=== PATIENT | male | born 1990 | race African-American/Black ===

== ENCOUNTER 2025-04-28 18:10 | Emergency (ER) | payer OTHER, SELFPAY ==
--- NOTE | 2025-04-28 18:49 | ER ---
Nurse's Notes [facility] Name: Akhil Irwin Age: 35 yrs Sex: Male : 1990 Arrival Date: 04/28/2025 Time: 18:10 Bed 23 Private MD: Diagnosis: Cutaneous abscess of neck;Type 2 diabetes mellitus with hyperglycemia Presentation: 04/28 18:20 Chief complaint: Patient states: Abscess to back of neck for 1 week getting nh2 progressively worse. No drainage or fever. Coronavirus screen: Client denies travel out of the [place] in the last 14 days. At this time, the client does not indicate any symptoms associated with coronavirus-19. Ebola Screen: Patient denies travel to an Ebola-affected area in the 21 days before illness onset. Acute neurological deficit: none identified. Initial Sepsis Screen: Does the patient meet any 2 criteria? No. Patient's initial sepsis screen is negative. Does the patient have a suspected source of infection? No. Patient's initial sepsis screen is negative. Risk Assessment: Do you want to hurt yourself or someone else? Patient reports no desire to harm self or others. Onset of symptoms was April 21, 2025. 18:20 Method Of Arrival: Ambulatory nh2 18:20 Acuity: PAVAN 3 ll1 Triage Assessment: 18:20 General: Appears uncomfortable, Behavior is calm, cooperative, appropriate for age. ll1 Pain: Complains of pain in posterior neck Pain currently is 2 out of 10 on a pain scale. Quality of pain is described as aching. Derm: Abscess located on posterior neck is half dollar sized, has no drainage, is hot to touch, is raised. Historical: - Allergies: 18:20 No Known Allergies; nh2 - PMHx: 18:20 Diabetes mellitus; nh2 - PSHx: 18:20 None; nh2 - Immunization history:: Adult Immunizations up to date. - Social history:: Smoking status: Patient denies any tobacco usage or history of. - Family history:: not pertinent. Screenin:58 [facility] ED Fall Risk Assessment (Adult) History of falling in the last 3 months, jb4 including since admission No falls in past 3 months (0 pts) Confusion or Disorientation No (0 pts) Intoxicated or Sedated No (0 pts) Impaired Gait No (0 pts) Mobility Assist Device Used No (0 pt) Altered Elimination No (0 pt) Score/Fall Risk Level 0 - 2 = Low Risk Oriented to surroundings, Maintained a safe environment. Abuse screen: Denies threats or abuse. Nutritional screening: No deficits noted. Tuberculosis screening: No symptoms or risk factors identified. Assessment: 18:58 General: Appears in no apparent distress. comfortable, Behavior is calm, cooperative, jb4 appropriate for age. Pain: Denies pain. Neuro: Level of Consciousness is awake, alert, obeys commands, Oriented to person, place, time, situation. Cardiovascular: Patient's skin is warm and dry. Respiratory: Airway is patent Respiratory effort is even, unlabored, Respiratory pattern is regular, symmetrical. Derm: Skin is intact, Skin is dry, Skin is normal, Skin temperature is warm. Musculoskeletal: Circulation, motion, and sensation intact. Range of motion: intact in all extremities, Swelling present in left posterior aspect of neck. 18:59 Reassessment: Provider notified pt BGL 410, no new orders, provider reports pt is to be jb4 discharged and follow up back here tomorrow at 6am. Vital Signs: 18:20 BP 152 / 86; Pulse 112; Resp 17; Temp 97.6; Pulse Ox 100% ; Weight 113.4 kg; Height 6 nh2 ft. 3 in. ; Pain 2/10; 18:20 Body Mass Index 31.25 (113.40 kg, 190.5 cm) nh2 18:20 Pain Scale: Adult nh2 ED Course: 18:15 Patient arrived in ED. im 18:20 Arm band placed on. nh2 18:21 Triage completed. nh2 18:22 Russel Tucker MD is Attending Physician. hannah 18:48 Kevin eKssler MD is Referral Physician. hannah 18:58 Patient has correct armband on for positive identification. Bed in low position. Call jb4 light in reach. Side rails up X 1. Provided Education on: plan of care. 18:58 No provider procedures requiring assistance completed. Patient did not have IV access jb4 during this emergency room visit. Administered Medications: 18:58 Drug: Trimethoprim-Sulfamethoxazole PO (160 mg-800 mg (DS) 2 tablet PO once Route: PO; jb4 19:07 Follow up: Response: Medication administered at discharge. [facility] 18:58 Drug: Clindamycin PO 300 mg PO once Route: PO; jb4 19:07 Follow up: Response: Medication administered at discharge. jb4 18:58 Drug: Ibuprofen PO 600 mg PO once Route: PO; jb4 19:07 Follow up: Response: Medication administered at discharge. jb4 Medication: 18:58 VIS not applicable for this client. jb4 Outcome: 18:49 Discharge ordered by . hannah 19:07 Discharged to home ambulatory, jb4 19:07 Condition: stable 19:07 Discharge instructions given to patient, Instructed on discharge instructions, follow up and referral plans. medication usage, Demonstrated understanding of instructions, follow-up care, medications, Prescriptions given X 4, 19:07 Patient left the ED. jb4 Signatures: Russel Tucker MD MD cha Bryson, James RN RN jb4 Claritza Breen RN RN ll1 Rosalinda Parson Jr, Noel, RN RN nh2 Corrections: (The following items were deleted from the chart) 18:41 18:20 Acuity: PAVAN 4 nh2 ll1
--- NOTE | 2025-04-28 18:49 | EDPHYS ---
Physician Documentation [facility] Name: Akhil Irwin Age: 35 yrs Sex: Male : 1990 Arrival Date: 04/28/2025 Time: 18:10 Bed 23 Private MD: ED Physician Russel uTcker HPI: 04/28 18:40 This 35 yrs old Black Male presents to ER via Ambulatory with complaints of Neck hannah Swelling. 18:40 The patient or guardian complains of pain, that is acute. The symptoms are located on hannah the base of the skull. Onset: The symptoms/episode began/occurred 3 day(s) ago. Associated signs and symptoms: The patient has no apparent associated signs or symptoms. Modifying factors: The symptoms are alleviated by nothing. the symptoms are aggravated by nothing. Severity of symptoms: At their worst the symptoms were moderate, in the emergency department the symptoms are unchanged. The patient has not experienced similar symptoms in the past. Historical: - Allergies: 18:20 No Known Allergies; nh2 - PMHx: 18:20 Diabetes mellitus; nh2 - PSHx: 18:20 None; nh2 - Immunization history:: Adult Immunizations up to date. - Social history:: Smoking status: Patient denies any tobacco usage or history of. - Family history:: not pertinent. ROS: 18:40 Constitutional: Negative for fever, chills, and weight loss, Eyes: Negative for injury, hannah pain, redness, and discharge, ENT: Negative for injury, pain, and discharge, Neck: Negative for injury, pain, and swelling, Cardiovascular: Negative for chest pain, palpitations, and edema, Respiratory: Negative for shortness of breath, cough, wheezing, and pleuritic chest pain, Abdomen/GI: Negative for abdominal pain, nausea, vomiting, diarrhea, and constipation, Back: Negative for injury and pain, : Negative for injury, bleeding, discharge, and swelling, MS/Extremity: Negative for injury and deformity, Neuro: Negative for headache, weakness, numbness, tingling, and seizure, 18:40 Skin: Positive for erythema, swelling, Exam: 18:40 Constitutional: This is a well developed, well nourished patient who is awake, alert, hannah and in no acute distress. Head/Face: Normocephalic, atraumatic. Eyes: Pupils equal round and reactive to light, extra-ocular motions intact. Lids and lashes normal. Conjunctiva and sclera are non-icteric and not injected. Cornea within normal limits. Periorbital areas with no swelling, redness, or edema. ENT: Nares patent. No nasal discharge, no septal abnormalities noted. Tympanic membranes are normal and external auditory canals are clear. Oropharynx with no redness, swelling, or masses, exudates, or evidence of obstruction, uvula midline. Mucous membranes moist. Neck: Trachea midline, no thyromegaly or masses palpated, and no cervical lymphadenopathy. Supple, full range of motion without nuchal rigidity, or vertebral point tenderness. No Meningismus. Chest/axilla: Normal chest wall appearance and motion. Nontender with no deformity. No lesions are appreciated. Cardiovascular: Regular rate and rhythm with a normal S1 and S2. No gallops, murmurs, or rubs. Normal PMI, no JVD. No pulse deficits. Respiratory: Lungs have equal breath sounds bilaterally, clear to auscultation and percussion. No rales, rhonchi or wheezes noted. No increased work of breathing, no retractions or nasal flaring. Abdomen/GI: Soft, non-tender, with normal bowel sounds. No distension or tympany. No guarding or rebound. No evidence of tenderness throughout. Back: No spinal tenderness. No costovertebral tenderness. Full range of motion. Male : Normal genitalia with no discharge or lesions. MS/ Extremity: Pulses equal, no cyanosis. Neurovascular intact. Full, normal range of motion., bilateral aka Neuro: Awake and alert, GCS 15, oriented to person, place, time, and situation. Cranial nerves II-XII grossly intact. Motor strength 5/5 in all extremities. Sensory grossly intact. Cerebellar exam normal. Normal gait. Psych: Awake, alert, with orientation to person, place and time. Behavior, mood, and affect are within normal limits. 18:40 Skin: abscess, cellulitis, that is mild, that is moderate, induration, that is moderate is noted, located on the base of the skull, Vital Signs: 18:20 BP 152 / 86; Pulse 112; Resp 17; Temp 97.6; Pulse Ox 100% ; Weight 113.4 kg; Height 6 nh2 ft. 3 in. ; Pain 2/10; 18:20 Body Mass Index 31.25 (113.40 kg, 190.5 cm) nh2 18:20 Pain Scale: Adult nh2 MDM: 18:22 Medical Screening Exam initiated [facility] 18:46 Differential diagnosis: abscess. Data reviewed: vital signs, nurses notes. [facility] Consideration of Admission/Observation Escalation of care including admission/observation considered. Care significantly affected by the following chronic conditions: Diabetes, Obesity. 18:49 ED course: told needs labs and admission , surgery. [facility] 04/28 19:04 Order name: Glucose, Ancillary Testing EDMS 04/28 18:38 Order name: Blood Glucose Level; Complete Time: 18:58 hannah Administered Medications: 18:58 Drug: Trimethoprim-Sulfamethoxazole PO (160 mg-800 mg (DS) 2 tablet PO once Route: PO; jb4 19:07 Follow up: Response: Medication administered at discharge. jb4 18:58 Drug: Clindamycin PO 300 mg PO once Route: PO; jb4 19:07 Follow up: Response: Medication administered at discharge. jb4 18:58 Drug: Ibuprofen PO 600 mg PO once Route: PO; jb4 19:07 Follow up: Response: Medication administered at discharge. jb4 Disposition Summary: 04/28/25 18:49 Discharge Ordered Notes: Location: Home hannah Problem: new hannah Symptoms: are unchanged hannah Condition: Stable hannah Diagnosis - Cutaneous abscess of neck hannah - Type 2 diabetes mellitus with hyperglycemia hannah Followup: hannah - With: Private Physician - When: Today - Reason: Recheck today's complaints, Continuance of care, Re-evaluation by your physician Followup: hannah - With: Kevin Kessler MD - When: Today - Reason: Recheck today's complaints, Re-evaluation by your physician Discharge Instructions: - Discharge Summary Sheet hannah - Skin Abscess hannah - Type 2 Diabetes Mellitus, Diagnosis, Adult hannah - Hyperglycemia hannah - Skin Abscess, Nyzz-se-Ocof hannah - Diabetes Mellitus and Nutrition, Adult [facility] Forms: - Medication Reconciliation Form hannah - Antibiotic Education hannah - Prescription Opioid Use hannah - Patient Portal Instructions [facility] - Leadership Thank You Letter [facility] Prescriptions: - mupirocin 2 % Topical ointment - apply 1 application TOPICAL route 3 times per day; 30 gram; Refills: 0, Product hannah Selection Permitted - Clindamycin HCl 300 mg Oral Capsule - take 1 capsule ORAL route every 6 hours for 10 days; 40 capsule; Refills: 0, hannah Product Selection Permitted - Bactrim DS 800-160 mg Oral Tablet - take 1 tablet ORAL route every 12 hours for 10 days; 20 tablet; Refills: 0, hannah Product Selection Permitted - Tylenol-Codeine #3 300mg-30mg Oral tablet - take 2 tablets ORAL route every 6 hours As needed; 20 tablet; Refills: 0, hannah Product Selection Permitted Signatures: Russel Tucker MD MD cha Bryson, James, RN RN jb4 Сергей Urena Jr RN RN nh2
[2025-04-28] MEDS ORDERED: IBUPROFEN 200 MG TAB PO ONE (18:57)
[2025-04-28] MEDS ORDERED: SMZ./TMP. 800/160 MG TABLET ONE (18:57)
[2025-04-28 22:01] VITALS: BP 152/86; TEMP 97.6; O2SAT 100
== END 2025-04-28 19:07 | disposition home or self-care (01) ==
LOC: ER 18:10
DX: L02.11 Cutaneous abscess of neck (principal); E11.65 Type 2 diabetes mellitus with hyperglycemia
CPT/HCPCS: 82947; 99283

== ENCOUNTER 2025-04-29 06:13 | Observation (INO) | payer SELFPAY ==
--- OUTSIDE RECORDS SUMMARY | 2025-04-29 06:15 | XMS REPORT | Continuity of Care Document ---
Author Name Unknown Address [address] [place] [address] [address] [place] [address] [facility] Address [address] [facility]. [address] [place] [address] Care Team Providers Care Parking Lot Attendant And Cashier Name Role Phone Braydon Attending Clinician Unavailable ZEINA Attending Clinician Unavailable Sulma Rosa Attending Clinician [phone] Braydon Admitting Clinician Unavailable ZEINA Admitting Clinician Unavailable Payers Payer Name Policy Type Policy Number Effective Date Expirati on Date Source Problems Condition Name Condition Details Condition Category Status Onset Date Resolution Date Last Treatment Date Treating Clinician Comments Source Diabetes mellitus Diabetes Mellitus Problem Active 11-10 00:00: 00 [facility] Polyuria Polyuria Problem Active 2- 00:00: 00 [facility] Hyperglyce dewayne Hyperglyce dewayne Problem Active 2 00:00: 00 [facility] Excessive thirst Excessive Thirst Problem Active 2- 00:00: 00 [facility] Random blood glucose abnormal Random Blood Glucose Abnormal Problem Active 10-29 00:00: 00 [facility] Social History Smoking Status Start Date Stop Date Source Never Smoker [facility] Medications Ordered Medication Name Filled Medication Name Start Date Stop Date Current Medication? Ordering Clinician Indication Dosage Frequency Signature (SIG) Comments Components Source ivermectin 3 mg tablet Take 1 tablet twice a day by oral route as directed for 5 days. ivermectin 3 mg tablet Take 1 tablet twice a day by oral route as directed for 5 days. No 1 BID ivermectin 3 mg tablet Take 1 tablet twice a day by oral route as directed for 5 days. [facility] prednisone 20 mg tablet Take 1 tablet twice a day by oral route as directed for 7 days. prednisone 20 mg tablet Take 1 tablet twice a day by oral route as directed for 7 days. No 1 BID prednisone 20 mg tablet Take 1 tablet twice a day by oral route as directed for 7 days. [facility] Zithromax Z-Arie 250 mg tablet TAKE 2 TABLETS (500 MG) BY ORAL ROUTE ONCE DAILY FOR 1 DAY THEN 1 TABLET (250 MG) BY ORAL ROUTE ONCE DAILY FOR 4 DAYS Zithromax Z-Arie 250 mg tablet TAKE 2 TABLETS (500 MG) BY ORAL ROUTE ONCE DAILY FOR 1 DAY THEN 1 TABLET (250 MG) BY ORAL ROUTE ONCE DAILY FOR 4 DAYS No Zithromax Z-Arie 250 mg tablet TAKE 2 TABLETS (500 MG) BY ORAL ROUTE ONCE DAILY FOR 1 DAY THEN 1 TABLET (250 MG) BY ORAL ROUTE ONCE DAILY FOR 4 DAYS [facility] metformin 1,000 mg tablet Take 1 tablet twice a day by oral route for 30 days. metformin 1,000 mg tablet Take 1 tablet twice a day by oral route for 30 days. No 1 BID metformin 1,000 mg tablet Take 1 tablet twice a day by oral route for 30 days. [facility] metformin 500 mg tablet Take 1 tablet twice a day by oral route. metformin 500 mg tablet Take 1 tablet twice a day by oral route. No 1 BID metformin 500 mg tablet Take 1 tablet twice a day by oral route. [facility] metformin 1,000 mg tablet Take 1 tablet twice a day by oral route. metformin 1,000 mg tablet Take 1 tablet twice a day by oral route. No 1 BID metformin 1,000 mg tablet Take 1 tablet twice a day by oral route. [facility] Vital Signs Vital Name Observation Time Observation Value Comments S ource BP Diastolic 2022-12-08 00:00:00 83 mm[Hg] [facility] Height 2022-12-08 00:00:00 75 [in_i] [facility] BMI (Body Mass Index) 2022-12-08 00:00:00 35.9 kg/m2 [facility] BP Systolic 2022-12-08 00:00:00 135 mm[Hg] [facility] Body Weight 2022-12-08 00:00:00 4592 [oz_av] [facility] BP Diastolic 2022-11-10 00:00:00 77 mm[Hg] [facility] Height 2022-11-10 00:00:00 75 [in_i] [facility] BMI (Body Mass Index) 2022-11-10 00:00:00 34.8 kg/m2 [facility] BP Systolic 2022-11-10 00:00:00 127 mm[Hg] [facility] Body Weight 2022-11-10 00:00:00 4451.2 [oz_av] [facility] BP Diastolic 2022-10-30 00:00:00 88 mm[Hg] [facility] Height 2022-10-30 00:00:00 75 [in_i] [facility] BP Systolic 2022-10-30 00:00:00 138 mm[Hg] [facility] BP Diastolic 2022-10-29 00:00:00 88 mm[Hg] [facility] Height 2022-10-29 00:00:00 75 [in_i] [facility] BMI (Body Mass Index) 2022-10-29 00:00:00 34.8 kg/m2 [facility] BP Systolic 2022-10-29 00:00:00 145 mm[Hg] [facility] Body Weight 2022-10-29 00:00:00 4457.6 [oz_av] [facility] BP Diastolic 2021-05-16 00:00:00 102 mm[Hg] [facility] Height 2021-05-16 00:00:00 74 [in_i] [facility] BMI (Body Mass Index) 2021-05-16 00:00:00 41 kg/m2 [facility] BP Systolic 2021-05-16 00:00:00 155 mm[Hg] [facility] Body Weight 2021-05-16 00:00:00 5104 [oz_av] [facility] Plan of Care Planned Activity Planned Date Details Comments Source Diagnostic Test Pending 2022-10-29 00:00:00 glucose, fingerstick, blood [code = glucose, fingerstick, blood] [facility] Instructions [facility] Encounters Start Date/Time End Date/Time Encounter Type Admission Type Attending Clinicians Care Facility Care Department Encounter ID Source 2022-12-08 00:00:00 2022-12-08 00:00:00 Joanie Carson APRN, MSN, MAT MACHINE OPERATOR-BC: [address] [place] [address], [address] [id number] , Ph. [facility] [id number] [facility] 2022-11-10 00:00:00 2022-11-10 00:00:00 Joanie Carson APRN, MSN, MAT MACHINE OPERATOR-BC: [address] [place] [address], [address] [address] , Ph. [facility] [phone] [facility] 2022-10-30 00:00:00 2022-10-30 00:00:00 Joanie Carson APRN, MSN, MAT MACHINE OPERATOR-BC: [address] [place] [address], [address] [address] , Ph. [facility] [id number] [facility] 2022-10-29 00:00:00 2022-10-29 00:00:00 Joanie Casron APRN, MSN, MAT MACHINE OPERATOR-BC: [address] [place] [address], [address] [address] , Ph. [facility] [id number] [facility] 2021-05-16 00:00:00 2021-05-16 00:00:00 Outpatient Sulma Rosa [facility] [id number] 2021-05-16 00:00:00 2021-05-16 00:00:00 Sulma dalton, [facility]-: [address] [place] [address], [address], [place] [address] , Ph. [facility] [phone] [facility] Results Test Description Test Time Test Comments Results Result Co mments Source [facility]
--- NOTE | 2025-04-29 06:57 | EDPHYS ---
Physician Documentation [facility] Name: Akhil Irwin Age: 35 yrs Sex: Male : 1990 Arrival Date: 04/29/2025 Time: 06:13 Bed 18 Private MD: ED Physician Luis M Hewitt HPI: 04/29 06:30 This 35 yrs old Black Male presents to ER via Unassigned with complaints of Abscess. ms3 06:30 35-year-old male with past medical history of diabetes presents to the emergency ms3 department for left posterior neck abscess. Patient was seen in the emergency department yesterday and did not want admission at that time. He was told to come to the emergency department today at [address] Kessler. Patient states his discomfort is a 2/10 describes being sore. Patient denies any alleviating or inciting factors.. Historical: - Allergies: 06:33 No Known Allergies; bm8 - Home Meds: 06:33 Metformin Oral [Active]; bm8 - PMHx: 06:33 diabetes mellitus; bm8 - PSHx: 06:33 None; bm8 - Immunization history:: Adult Immunizations unknown. - Infectious Disease History:: Denies. - Social history:: Smoking status: Patient denies any tobacco usage or history of. ROS: 06:30 Constitutional: Negative for fever, and chills. Cardiovascular: Negative for chest ms3 pain, and palpitations. Respiratory: Negative for shortness of breath, cough, wheezing, and pleuritic chest pain, Abdomen/GI: Negative for abdominal pain, nausea, vomiting, diarrhea, and constipation, MS/Extremity: Negative for injury and deformity, 06:30 Skin: Positive for abscess, Exam: 06:35 Constitutional: This is a well developed, well nourished patient who is awake, alert, ms3 and in no acute distress. Chest/axilla: Normal chest wall appearance and motion. Nontender with no deformity. Cardiovascular: Regular rate and rhythm with a normal S1 and S2. No gallops, murmurs, or rubs. Normal PMI, no JVD. No pulse deficits. Respiratory: Lungs have equal breath sounds bilaterally, clear to auscultation and percussion. No rales, rhonchi or wheezes noted. No increased work of breathing, no retractions or nasal flaring. Abdomen/GI: Soft, non-tender, with normal bowel sounds. No distension or tympany. No guarding or rebound. No evidence of tenderness throughout. 06:35 Skin: abscess, that is moderate sized, of the left posterior neck, Vital Signs: 06:35 BP 147 / 81; Pulse 99; Resp 15; Temp 98.7; Pulse Ox 100% ; Pain 2/10; bm8 06:35 BP 147 / 81; Pulse 99; Resp 15; Temp 98.7; Pulse Ox 100% ; Weight 113.4 kg; Height 6 bm8 ft. 3 in. ; Pain 2/10; 07:38 BP 147 / 86; Pulse 91; Resp 15; Temp 98.7; Pulse Ox 98% ; Pain 0/10; jl7 06:35 Body Mass Index 31.25 (113.40 kg, 190.5 cm) bm8 06:35 Pain Scale: Adult bm8 06:35 Pain Scale: Adult bm8 07:38 Pain Scale: Adult jl7 Tappen Coma Score: 06:33 Eye Response: spontaneous(4). Motor Response: obeys commands(6). Verbal Response: bm8 oriented(5). Total: 15. MDM: 06:22 Medical Screening Exam initiated ms3 06:35 Differential diagnosis: abscess, cellulitis. ms3 07:24 Data reviewed: vital signs, nurses notes, lab test result(s), and as a result, I will ms3 admit patient. Consideration of Admission/Observation Patient will go to OR with Dr Kessler. Management of patient was discussed with the following: Senior Php Software Developer: Dr Kessler. Counseling: I had a detailed discussion with the patient and/or guardian regarding the historical points, exam findings, and any diagnostic results supporting the discharge/admit diagnosis. Special discussion: I discussed with the patient/guardian in detail that at this point there is no indication for admission to the hospital. It is understood, however, that if the symptoms persist or worsen the patient needs to return immediately for re-evaluation. 04/29 06:27 Order name: CBC with Diff; Complete Time: 07:19 ms3 04/29 06:27 Order name: CMP; Complete Time: 07:52 ms3 Administered Medications: 08:22 Drug: NS 0.9% IV 1000 ml IV at 125 ml/hr continuous; to be given as a bolus over 60 jl7 minutes Route: IV; Rate: 125 ml/hr; Site: right antecubital; 14:53 Follow up: IV Status: Infusion continued upon admission jl7 Disposition Summary: 04/29/25 06:57 Hospitalization Ordered Notes: Hospitalization Status: Observation ms3 Provider: Kevin Kessler ms3 Location: Operating Room ms3 Condition: Stable ms3 Problem: new ms3 Symptoms: are unchanged ms3 Bed/Room Type: Standard ms3 Room Assignment: ms3 Diagnosis - Cutaneous abscess of neck ms3 - Other specified diabetes mellitus with hyperglycemia ms3 Forms: - Medication Reconciliation Form ms3 - SBAR form ms3 - Leadership Thank You Letter ms3 Signatures: Dispatcher [employer] Nelson Marquez, RN RN jl7 Lui sM Hewitt DO DO ms3 Sony Samuel, RN RN bm8
--- NOTE | 2025-04-29 06:57 | ER ---
Nurse's Notes [facility] Name: Akhil Irwin Age: 35 yrs Sex: Male : 1990 Arrival Date: 04/29/2025 Time: 06:13 Bed 18 Private MD: Diagnosis: Cutaneous abscess of neck;Other specified diabetes mellitus with hyperglycemia Presentation: 04/29 06:35 Chief complaint: Patient states: I have the abscess growing on the back of my neck for bm8 about 1 week. Coronavirus screen: At this time, the client does not indicate any symptoms associated with coronavirus-19. Ebola Screen: Patient negative for fever greater than or equal to 101.5 degrees Fahrenheit, and additional compatible Ebola Virus Disease symptoms Patient denies exposure to infectious person. Patient denies travel to an Ebola-affected area in the 21 days before illness onset. No symptoms or risks identified at this time. Initial Sepsis Screen: Does the patient meet any 2 criteria? No. Patient's initial sepsis screen is negative. Does the patient have a suspected source of infection? No. Patient's initial sepsis screen is negative. Risk Assessment: Do you want to hurt yourself or someone else? Patient reports no desire to harm self or others. Onset of symptoms was April 22, 2025. 06:35 Method Of Arrival: Ambulatory bm8 06:35 Acuity: PAVAN 3 bm8 Triage Assessment: 06:30 General: Appears in no apparent distress. comfortable, Behavior is calm, cooperative, bm8 appropriate for age. Pain: Complains of pain in base of the skull Pain currently is 2 out of 10 on a pain scale. EENT: No deficits noted. No signs and/or symptoms were reported regarding the EENT system. Neuro: No deficits noted. Level of Consciousness is awake, alert, obeys commands, Oriented to person, place, time, situation, Appropriate for age. Cardiovascular: Denies chest pain, Capillary refill < 3 seconds in bilateral fingers Patient's skin is warm and dry. Respiratory: Airway is patent Respiratory effort is even, unlabored, Respiratory pattern is regular, symmetrical. GI: No deficits noted. No signs and/or symptoms were reported involving the gastrointestinal system. : No deficits noted. No signs and/or symptoms were reported regarding the genitourinary system. Derm: abscess on back of neck around the hair line approx. 4 inches in diameter and 1.5 inches of raised skin. Is soft and pliable. in center. Abscess. Musculoskeletal: No deficits noted. No signs and/or symptoms reported regarding the musculoskeletal system. Historical: - Allergies: 06:33 No Known Allergies; bm8 - Home Meds: 06:33 Metformin Oral [Active]; bm8 - PMHx: 06:33 diabetes mellitus; bm8 - PSHx: 06:33 None; bm8 - Immunization history:: Adult Immunizations unknown. - Infectious Disease History:: Denies. - Social history:: Smoking status: Patient denies any tobacco usage or history of. Screenin:37 [facility] ED Fall Risk Assessment (Adult) History of falling in the last 3 months, bm8 including since admission No falls in past 3 months (0 pts) Confusion or Disorientation No (0 pts) Intoxicated or Sedated No (0 pts) Impaired Gait No (0 pts) Mobility Assist Device Used No (0 pt) Altered Elimination No (0 pt) Score/Fall Risk Level 0 - 2 = Low Risk Oriented to surroundings, Maintained a safe environment, Educated pt \T\ family on fall prevention, incl call for assistance when getting out of bed, Assessed \T\ reinforced patient's understanding of fall precautions, Hourly rounding (assess needs \T\ fall precautionary measures) done, Used ambulatory aids as needed (educated on \T\ assisted with), Used gait belt as appropriate. Abuse screen: Denies threats or abuse. Nutritional screening: No deficits noted. Tuberculosis screening: No symptoms or risk factors identified. Assessment: 07:38 General: Appears in no apparent distress. uncomfortable, Behavior is calm, cooperative, jl7 appropriate for age. Pain: Denies pain. Neuro: Level of Consciousness is awake, alert, obeys commands, Oriented to person, place, time, situation. Cardiovascular: Patient's skin is warm and dry. Respiratory: Airway is patent Respiratory effort is even, unlabored, Respiratory pattern is regular, symmetrical. Derm: Skin is pink, warm \T\ dry. Abscess located on base of the skull is golf ball sized, is raised. 08:30 Reassessment: Patient appears in no apparent distress at this time. No changes from jl7 previously documented assessment. Patient and/or family updated on plan of care and expected duration. Pain level reassessed. Patient is alert, oriented x 3, equal unlabored respirations, skin warm/dry/pink. 09:30 Reassessment: supervisor carding reports plan is to take pt to OR and it will likely be jl7 after lunch time. 10:43 Reassessment: Patient appears in no apparent distress at this time. No changes from jl7 previously documented assessment. Patient and/or family updated on plan of care and expected duration. Pain level reassessed. Patient is alert, oriented x 3, equal unlabored respirations, skin warm/dry/pink. 11:45 Reassessment: Patient appears in no apparent distress at this time. No changes from jl7 previously documented assessment. Patient and/or family updated on plan of care and expected duration. Pain level reassessed. Patient is alert, oriented x 3, equal unlabored respirations, skin warm/dry/pink. Vital Signs: 06:35 BP 147 / 81; Pulse 99; Resp 15; Temp 98.7; Pulse Ox 100% ; Pain 2/10; bm8 06:35 BP 147 / 81; Pulse 99; Resp 15; Temp 98.7; Pulse Ox 100% ; Weight 113.4 kg; Height 6 bm8 ft. 3 in. ; Pain 2/10; 07:38 BP 147 / 86; Pulse 91; Resp 15; Temp 98.7; Pulse Ox 98% ; Pain 0/10; jl7 06:35 Body Mass Index 31.25 (113.40 kg, 190.5 cm) bm8 06:35 Pain Scale: Adult bm8 06:35 Pain Scale: Adult bm8 07:38 Pain Scale: Adult jl7 Kanwal Coma Score: 06:33 Eye Response: spontaneous(4). Motor Response: obeys commands(6). Verbal Response: bm8 oriented(5). Total: 15. ED Course: 06:14 Patient arrived in ED. jj6 06:21 Luis M Hewitt DO is Attending Physician. ms3 06:30 Sony Samuel, RN is Primary Nurse. bm8 06:30 Arm band placed on right wrist. bm8 06:36 Triage completed. bm8 06:37 Patient has correct armband on for positive identification. Bed in low position. Call bm8 light in reach. Side rails up X 1. Client placed on continuous cardiac and pulse oximetry monitoring. NIBP monitoring applied. Pulse ox on. NIBP on. Door closed. Noise minimized. Pillow given. Verbal reassurance given. Head of bed elevated. 06:37 No provider procedures requiring assistance completed. Initial lab(s) drawn, by ED bm8 staff, sent to lab. Patient maintains SpO2 saturation greater than 95% on room air. 06:40 Inserted saline lock: 20 gauge in right antecubital area, using aseptic technique. zm Blood collected. Flushed with 10 mL NS. 06:41 CBC with Diff Sent. zm 06:41 CMP Sent. zm 06:56 Kevin Kessler MD is Hospitalizing Provider. ms3 07:05 Report given to ENEIDA Damon. zm 07:38 Provided Education on: use of call camacho. jl7 07:38 Maintain EMS IV. Dressing intact. Good blood return noted. Site clean \T\ dry. Gauge \T\ jl 7 site: 20 R AC. Flushed with 10 mL NS Patient admitted, IV remains in place. intact, No redness/swelling at site. 14:16 Primary Nurse role handed off by Sony Samuel RN jl 14:16 Nelson Smith, ENEIDA is Primary Nurse. jl7 Administered Medications: 08:22 Drug: NS 0.9% IV 1000 ml IV at 125 ml/hr continuous; to be given as a bolus over 60 jl7 minutes Route: IV; Rate: 125 ml/hr; Site: right antecubital; 14:53 Follow up: IV Status: Infusion continued upon admission jl7 Medication: 06:37 VIS not applicable for this client. bm8 Outcome: 06:57 Decision to Hospitalize by Provider. ms3 14:52 Admitted to OR via stretcher, with chart, Other With Buckle Inspector jl 14:52 Condition: stable 14:52 Discharge instructions given to patient, family, Instructed on the need for admit, Demonstrated understanding of instructions, 14:53 Patient left the ED. jl7 Signatures: Nelson Smith, RN RN jl7 Luis M Hewitt DO DO ms3 [id number] Dottie Kessler, RN ENEIDA Sony Samuel, RN RN bm8 Corrections: (The following items were deleted from the chart) 06:37 06:35 BP 147 / 81; Pulse 99bpm; Resp 15bpm; Pulse Ox 100%; Temp 98.5F; Pain 2/10, bm8 Adult; bm8
[2025-04-29 07:10] LABS: Absolute Lymphocytes (CBC) 2.1 K/uL (0.7-4.9); Hematocrit 44.0 % (39.6-49.0); Hemoglobin 14.6 g/dL (13.6-17.9); MCH 25.3 pg (27.0-35.0); MCHC 33.3 g/dL (32.0-36.0); MCV 76.1 fL (80-100); MPV 8.4 fL (7.6-11.3); Nucleated RBC Absolute Count 0.0 (0-0); Nucleated Red Blood Cells % 0.1 % (0-0); RBC Red Blood Cell Count 5.78 M/uL (4.33-5.43); White Blood Count 8.50 thou/uL (4.3-10.9)
[2025-04-29 07:40] LABS: ALT/SGPT 20.0 U/L (16-61); AST/SGOT 11.0 U/L (15-37); Albumin 3.2 g/dL (3.4-5.0); Albumin/Globulin Ratio 0.6 (1.1-1.8); Alkaline Phosphatase 140.0 U/L (45-117); Anion Gap 10.7 mEq/L (5.0-15.0); BUN Blood Urea Nitrogen 10.0 mg/dL (7-18); Globulin 5.0 g/dL (2.3-3.5); Glucose Level 271.0 mg/dL (74-106); Potassium 3.7 mEq/L (3.5-5.1)
--- NOTE | 2025-04-29 13:32 | HP ---
Date of Admission: 04/29/2025 Reason For Service: Posterior neck abscess. History Of Present Illness: This is a case of a 35-year-old patient, who comes to us with posterior neck abscess, apparently he came last night. Dr. Tucker called me and the patient has a posterior neck abscess with cellulitis. I advised him to stay in the hospital, admitted to the hospitalist, cindi medina of diabetes, control of infection. The patient did not want to stay, so as another option is j ust the patient has to come next day because he has so many things to do at that moment, we advised h im not to do so, but he needs to do so, so this morning chosen the ER, they called me, he is back, so I advised him once again the importance of the I and D of that. So, this time he was admitted to my service. So, he does not remember how this happened. He wants to go home today again. He was advi sed the importance of controlling his diabetes and following his medications. He denies any trauma. Review of Systems: Denies any dysuria, hematuria, hematochezia, melena. Denies any recent traveling out of the country. Denies any family member sick at home. Allergies: NONE. Medications: Metformin. Past Medical History: Diabetes. Past Surgical History: None. Social History: He does not smoke. He does not drink alcohol. Review of Systems: Ten points otherwise unremarkable. No shortness of breath. No chest pain. No fever. Just an absce ss in the posterior neck. Physical Examination: Vital Signs: Reviewed. General: The patient is awake, alert. HEENT: Pupils are equal and reactive. Anicteric. Neck: Supple. There is a posterior neck abscess, is about 10 x 3 cm with fluctuance present and chelsey thema. They need to be drained. Chest: Bilateral breath sounds. Heart: S1, S2. Abdomen: Soft and depressible. No guarding. No rebound. No peritoneal signs. Extremities: Good capillary refill. Full range of motion x4. Good peripheral pulses. Neuro: Cranial nerves 2 through 12 grossly within normal limits. Back: No step-off. No tenderness. Rectal: Deferred. Genitalia: Deferred. Breasts: Deferred. Laboratory Data: Blood work shows WBC count of 8.5 with hemoglobin of 14.6 and platelets of 323, glu cose 271, IgA 578, potassium 3.7. Assessment And Plan: A 35-year-old patient with history of diabetes and posterior neck abscess. He was explained the need for I and D with benefits, alternatives, and risks, which include, but not wolfe ited to infection, bleeding, damage to adjacent structures, anesthesia complication, recurrence, OK, and even . He also understands this may not relieve symptoms. He might need more than one surg ical intervention. He also understands the importance of dressing changes. This will require dressi ng changes. We are suspecting to be next week also the [facility], so we can explain to him how to do dressing changes and at home he may require Home Health or even dressing changes on his own. He is trying to find a family member who will do that for him because he works on Thursday. I explained t o him the importance of taking priority and taking care of this. Anyway, the patient was booked macarena gently in the OR. He is n.p.o. since last night. DERIC/JACK Voice ID: [id number]
[2025-04-29] MEDS: NA CHLORIDE 0.9% 1,000 ML ONE (15:00)
[2025-04-29] MEDS ORDERED: ONDANSETRON 4 MG/2 ML VIAL ONE (15:11)
[2025-04-29] MEDS ORDERED: LIDOCAINE 2% MPF 5 ML VIAL ONE (15:11)
[2025-04-29] MEDS ORDERED: MIDAZOLAM HCL 2 MG/2 ML INJ ONE (15:11)
[2025-04-29] MEDS ORDERED: FENTANYL CITR 100 MCG/2 ML ONE (15:11)
--- NOTE | 2025-04-29 16:32 | P.BOP ---
Preoperative diagnosis: posterior neck abscess Postoperative diagnosis: same Primary procedure: Incision and drainage of complex posterior neck abscess Secondary procedure: 7x2 cm Estimated blood loss: < Specimen: culture Findings: as above Anesthesia: General Drain(s): Other (/" iodoform 5 yards) Transferred to: Recovery Room Condition: Good
[2025-04-29] MEDS: CEFAZOLIN SODIUM 2 GM/VIAL ONE (16:35)
[2025-04-29] MEDS: BUPIVACAINE 0.5% PF 10 ML VIAL ONE (16:46)
--- NOTE | 2025-04-29 17:22 | OP ---
Date of Procedure: 04/29/2025 Surgeon: Kevin Kessler MD Preoperative Diagnosis: Complex posterior neck abscess, diabetes. Postoperative Diagnosis: Complex posterior neck abscess, diabetes. Procedure: Incision and drainage of complex posterior neck abscess, it is about 7 x 2 x 2 cm. Estimated Blood Loss: Less than 10 cc. Complications: None. Packing: A quarter of an inch iodoform. Anesthesia: General plus local. Indications: This is the case of a 35-year-old patient who came to the ER with the posterior neck ab scess. He came yesterday. He decided to go home. Came today once again for drainage. He does not want to be admitted to the hospital. So, the patient will get an incision and drainage of posterior neck abscess with benefits, alternatives, and risks including, but not limited to, infection, bleedin g, damage to adjacent structures, anesthesia complication, recurrence, MT, and even . He also u nderstands this may not relieve any symptoms, he might need more than one surgical intervention. He received yesterday by Dr. Tucker pain medication and antibiotics. He was advised the importance to have that done. He said his family will be helping him, but I asked him to keep the dressings intac t, but have to be changed at least in 48 hours. He signed a consent. Description Of Procedure: The patient was brought to the operating room, placed in supine position. Anesthesia was induced without complication. Patient was placed in lateral decubitus position with proper protection. Left posterior neck was prepped and draped in sterile fashion. A time-out was ca lled. Local anesthesia was applied followed by sharp incision of the skin with the Bovie cauterizer. Immediately, a large amount of pus present, multiple loculations. We have to have a counter incisi on in the lateral and medial side of the neck to get entire abscess. Profuse irrigation was done and then we packed the area with a of the iodoform. Hemostasis was obtained before closure. Local anesthetic was applied. Patient tolerated the procedure well. Patient sent [facility] in stable condition. DERIC/MODL Voice ID: [id number] Report ID: [id number]
--- NOTE | 2025-04-29 17:27 | DS ---
Diagnoses: Posterior neck abscess, diabetes. Procedure: Incision and drainage of complex posterior neck abscess. Condition: Stable. Disposition: He wants to go home. He was advised to stay overnight. Discharge Instructions: As long as, he does the dressing changes and keep the area intact, it is oka y with me except he has to come here at least in 48 hours to have dressing changes. We welcome him t o come to the office, so we can help him with that. If he does not want to come, then just we will p ack the area with iodoform quarter of an inch daily until he sees me in a week. Whatever he wants to do is okay with me. DERIC/JACK Voice ID: [id number] Report ID: [id number]
[2025-04-29] MEDS ORDERED: HYDROCODONE/APAP 7.5/325 MG TAB PO PRN (17:28)
[2025-04-29] MEDS: HYDROMORPHONE HCL 1 MG/ML INJ ONE ×2 (17:38→17:55)
[2025-04-29 20:37] VITALS: TEMP 98.7
[2025-04-29 20:38] VITALS: BP 147/86; O2SAT 98
== END 2025-04-29 18:49 | disposition home or self-care (01) ==
LOC: ER 06:13 → DSO 09:15
PROVIDERS: ADMIT Surgery; ATTEND Surgery
PROC: 0J940ZX Drainage of Right Neck Subcutaneous Tissue and Fascia, Open Approach, Diagnostic (ICD-10-PCS; 2025-04-29)
PROC: 0J950ZX Drainage of Left Neck Subcutaneous Tissue and Fascia, Open Approach, Diagnostic (ICD-10-PCS; principal; 2025-04-29 14:45)
DX: L02.11 Cutaneous abscess of neck (principal); E11.9 Type 2 diabetes mellitus without complications
CPT/HCPCS: 36415; 80053; 82947; 85025; 87070; 87205; J1171; J2003; J2250; J2405; J2704; J3010; J7030